=== PATIENT | female | born 2005 | race Hispanic/Latino ===

== ENCOUNTER 2023-09-05 00:04 | Emergency (ER) | payer OTHER, SELFPAY ==
[2023-09-05 00:07] VITALS: BP 104/58; PULSE 94; RESP 18; TEMP 36.6; O2SAT 98; BMI 40.8
--- NOTE | 2023-09-05 00:19 | PC.NURSE ---
pt was dc today after delivering, pt's left leg is swollen and tight, no redness or tenderness noted, no hx of blood clots, pt states she had trouble with her epidural but no other complicatons with the delivery
--- NOTE | 2023-09-05 00:46 | ED.EXTPRO ---
HPI - Extremity Problem General Chief complaint: Extremity Problem,Nontraumatic Stated complaint: swollen left leg Time Seen by Provider: 09/05/23 00:36 Source: patient Mode of arrival: Ambulatory History of Present Illness HPI Narrative: 18-year-old female discharged from [facility] today after delivery. She noticed swelling in her left leg. Says not had pain in the leg has not had fevers. She is not having chest pain or shortness of breath. No history of hypercoagulable state. Exam Initial Vital Signs Initial Vital Signs: Vital Signs Temperature 97.9 F 09/05/23 00:07 Pulse Rate 94 H 09/05/23 00:07 Respiratory Rate 18 09/05/23 00:07 Blood Pressure 104/58 L 09/05/23 00:07 Pulse Oximetry 98 09/05/23 00:07 Oxygen Delivery Method Room Air 09/05/23 00:07 [facility] Head: normocephalic and atraumatic Resp Effort & Inspection: normal respiratory effort Skin General: no rashes or lesions noted Neuro General: patient alert, patient awake and patient oriented x3 Course Orders Ordered: ED Orders 09/05/23 00:50 US perip venous low extrem lt Stat Radiology reports no DVT in the left lower extremity Vital Signs Vital signs: Vital Signs - 8 hr 09/05/23 00:07 09/05/23 01:09 09/05/23 01:10 Temperature 97.9 F Pulse Rate 94 H Respiratory Rate 18 Blood Pressure 104/58 L 101/58 L Pulse Oximetry 98 97 Oxygen Delivery Method Room Air 09/05/23 01:10 09/05/23 01:30 09/05/23 01:30 Temperature Pulse Rate 83 68 Respiratory Rate Blood Pressure 91/53 L Pulse Oximetry 99 98 Oxygen Delivery Method MDM - Extremity (Nontraumatic) MDM Narrative Medical decision making narrative: 18-year-old female who noticed left lower extremity swelling today. Just had a term delivery was discharged from the hospital earlier today. Pulses are intact, exam does not suggest cellulitis. Ultrasound is negative for DVT. Recommended elevation and ambulation and follow up with primary care Discharge Plan Departure Patient Disposition: Home Clinical Impression: Lower extremity edema Activity Restrictions/Additional Instructions: Ultrasound tonight is negative for clot. I think if you walk as much as you can and elevate your legs above the level of the heart the swelling should go down. Follow-up soon with your doctor. Recheck in the emergency department for severe leg pain fevers or other acute symptoms. Stand Alone Forms: Patient Portal/API
--- NOTE | 2023-09-05 00:50 | DI.US.S_ITS ---
PROCEDURE: US PERIPH VENOUS LOW EXTREM LT INDICATIONS: dvt suspected TECHNIQUE: Real-time imaging, as well as color and pulse Doppler interrogation, were performed of the lower extremity deep veins from the inguinal ligament to the popliteal fossa, with documentation of the visualized calf veins. COMPARISON: None. FINDINGS: The common femoral, femoral, and popliteal veins are normally compressible, and free of intraluminal thrombus. Color and pulse Doppler demonstrate normal phasic intraluminal flow. There is normal augmentation response to distal compression maneuver. Of note, the peroneal and posterior tibial veins are not well seen secondary to edema. IMPRESSION: No findings of lower extremity deep venous thrombosis. Of note, the peroneal and posterior tibial veins are not well seen secondary to edema. I agree with the preliminary report. Dictated by: Daniela Flores M.D. on 09/05/2023 at 7:42 Approved by: Daniela Flores M.D. on 09/05/2023 at 7:44
[2023-09-05 01:09] VITALS: O2SAT 97
[2023-09-05 01:10] VITALS: BP 101/58; PULSE 83; O2SAT 99
[2023-09-05 01:30] VITALS: BP 91/53; PULSE 68; O2SAT 98
== END 2023-09-05 02:14 | disposition home or self-care (01) ==
PROVIDERS: Emergency Provider Emergency Medicine
DX: O90.89 Other complications of the puerperium, not elsewhere classified (principal); R60.0 Localized edema
CPT/HCPCS: 93971; 99283